=== PATIENT | female | born 1990 | race Caucasian/White ===

== ENCOUNTER → 2021-04-06 | Outpatient (CLI) | payer OTHER ==
--- NOTE | 2021-04-06 10:04 | RAD ---
EXAM: Obstetrics sonogram. HISTORY: Unsure dates. TECHNIQUE: . Sonographic imaging of the pelvis was performed. COMPARISON: None. FINDINGS: The uterus measures 9.8 x 6.3 x 4.5 cm. There is a single intrauterine gestational sac with a mean sac diameter of 1.1 cm. This corresponds with a gestational age of 5 weeks and 6 days. No fet al pole or yolk sac is seen. There is a small amount of free fluid in the posterior cul-de-sac. The o varies are normal in size and demonstrate normal blood flow. IMPRESSION: 1. Suspected early gestational sac with a mean sac diameter corresponding with a gestational age of 5 weeks and 6 days. No pole is seen at this early gestation. Follow-up in 2 weeks can be perform ed to confirm viability and exclude a pseudosac or empty sac. 2. Small amount of nonspecific pelvic free fluid. Electronically signed by: Natalie Guy MD (04/06/2021 10:02 AM) [id number]
== END ==
LOC: US 08:56
PROVIDERS: ATTEND Nurse Practitioner Women's Health
DX: Z36.87 Encounter for antenatal screening for uncertain dates (principal); Z3A.01 Less than 8 weeks gestation of pregnancy
CPT/HCPCS: 76801